=== PATIENT | female | born 1925 | race Caucasian/White ===

== ENCOUNTER 2016-08-12 09:34 | Emergency (ER) | payer MEDICARE, OTHER ==
[2016-08-12 11:15] VITALS: BP 166/86
[2016-08-12] MEDS ORDERED: Albuterol/Ipratropium NEB.SOL* Albuterol 2.5 MG/Ipratropium 0.5 MG 3 ML INH ONE (11:28)
[2016-08-12] MEDS ORDERED: Acetaminophen TAB* 325 MG PO ONE (11:30)
--- NOTE | 2016-08-12 11:53 | RAD ---
HISTORY: Shortness of breath, fever COMPARISONS: April 25, 2013 VIEWS: 2: Frontal and lateral views of the chest. FINDINGS: CARDIOMEDIASTINAL SILHOUETTE: The cardiomediastinal silhouette is normal. WHITNEY: There is stable right hilar calcified lymph node PLEURA: The costophrenic angles are sharp. No pleural abnormalities are noted. LUNG PARENCHYMA: The lungs are clear. ABDOMEN: The upper abdomen is clear. There is no subphrenic gas. BONES AND SOFT TISSUES: No bone or soft tissue abnormalities are noted. OTHER: None. IMPRESSION: NO ACTIVE CARDIOPULMONARY DISEASE.
--- NOTE | 2016-08-12 12:25 | UC ---
Respiratory Complaint HPI - HPI Summary HPI Summary: cough and chest feels tight - History of Current Complaint Chief Complaint: UC Stated Complaint: CONGESTION Time Seen by Provider: 08/12/16 11:02 Hx Obtained From: Patient ?: No Onset/Duration: Sudden Onset Timing: Constant Severity Initially: Mild Severity Currently: Mild Character: Cough: Nonproductive Aggravating Factors: Deep Breaths Alleviating Factors: Nothing Associated Signs And Symptoms: Positive: Wheezing, URI - Allergies/Home Medications Allergies/Adverse Reactions: Allergies Allergy/AdvReac Type Severity Reaction Status Date / Time Phosphate AdvReac 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 Home Medications: Home Medications Pseudoephedrine-Guaifenesin [Mucinex D 60-600 mg] 1 tab PO BID PRN 08/12/16 [ History Confirmed 08/12/16] PMH/Surg Hx/FS Hx/Imm Hx Previously Healthy: No Endocrine History Of: Denies: Diabetes Cardiovascular History Of: Reports: Hypertension Denies: Pacemaker/ICD Respiratory History Of: Reports: Asthma GI/ History Of: Reports: Renal Disease - 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 LEFT ANKLE FX WITH METAL SCREW PLACEMENT - 1999. T&A. CATARACT REPAIR WITH LENSE REPLACEMENT - Family History Known Family History: Positive: Unknown Family History: no reported cardiovascular issues in family lineage - Social History Occupation: Retired Lives: With Family Alcohol Use: Daily Alcohol Amount: 1 glass wine/day Substance Use Type: None Smoking Status (MU): Never Smoked Tobacco Have You Smoked in the Last Year: No - Immunization History Most Recent Influenza Vaccination: fall 2015 Most Recent Tetanus Shot: UNSURE Most Recent Pneumonia Vaccination: 2017 Review of Systems Constitutional: Negative Skin: Negative Eyes: Negative ENT: Negative Respiratory: Cough - congested Cardiovascular: Negative Gastrointestinal: Negative Genitourinary: Negative Motor: Negative Neurovascular: Negative Musculoskeletal: Negative Neurological: Negative Psychological: Negative All Other Systems Reviewed And Are Negative: Yes Physical Exam Triage Information Reviewed: Yes Appearance: Well-Appearing, No Pain Distress, Well-Nourished Vital Signs: Initial Vital Signs Temp 100.5 F 08/12/16 10:37 Pulse 100 08/12/16 10:37 Resp 16 08/12/16 10:37 BP 158/72 08/12/16 10:37 Pulse Ox 96 08/12/16 10:37 Vital Signs Reviewed: Yes Eye Exam: Normal Eyes: Positive: Conjunctiva Clear ENT Exam: Normal ENT: Positive: Normal ENT inspection, Hearing grossly normal, Pharynx normal, TMs normal. Negative: Nasal congestion, Nasal drainage, Tonsillar swelling, Tonsillar exudate, Trismus, Muffled/hoarse voice Dental Exam: Normal Neck exam: Normal Neck: Positive: Supple, Nontender, No Lymphadenopathy Respiratory Exam: Normal Respiratory: Positive: Chest non-tender, No respiratory distress, No accessory muscle use, Wheezing Cardiovascular Exam: Normal Cardiovascular: Positive: No Murmur, Pulses Normal, Brisk Capillary Refill, Tachycardia Abdominal Exam: Normal Abdomen Description: Positive: Nontender, No Organomegaly, Soft Bowel Sounds: Positive: Present Musculoskeletal Exam: Normal Musculoskeletal: Positive: Strength Intact, ROM Intact, No Edema Neurological Exam: Normal Neurological: Positive: Alert, Muscle Tone Normal Psychological Exam: Normal Psychological: Positive: Normal Response To Family, Age Appropriate Behavior Skin Exam: Normal UC Diagnostic Evaluation - Laboratory O2 Sat by Pulse Oximetry: 97 Diagnostic Studies Comment: CXR---acute changes - Radiology Xray Interpretation: No Acute Changes Radiology Interpretation Completed By: Radiologist - EKG Cardiac Rate: NL Cardiac Rhythm: Sinus: Normal Ectopy: None ST Segment: Normal Re-Evaluation - Re-Evaluation First Eval Change: Improved - sat 96% ra After lasha, feels much better , coughed large amount of sputum, lungs CTA Respiratory Course/Dx - Course Course Of Treatment: Albuterol neb, zithmax, increase fluids, follow with Dr. Salas in 2-3 days - Differential Dx/Diagnosis Differential Diagnosis/HQI/PQRI: Asthma, Bronchitis, Exacerbation Of COPD, Laryngitis, Lower Resp Infection Provider Diagnoses: Acute on Chronic exacerbation of asthma Discharge - Discharge Plan Condition: Stable Disposition: HOME Prescriptions: Albuterol 2.5MG/3ML (0.083%)* [Ventolin 2.5 MG/3 ML NEB.EDMOND*] 2.5 mg INH Q6H PRN #1 box PRN Reason: cough/chest congestion Azithromycin TAB* [Zithromax TAB (Z-SOURAV) 250 mg #6 tabs] 2 tab PO .TODAY, THEN 1 DAILY #1 sourav Patient Education Materials: Acute Bronchitis (ED), How to Use a Nebulizer (ED) , Bronchospasm (ED) Referrals: Kj Salas MD [Primary Care Provider] - 3 Days
== END 2016-08-12 12:45 | disposition home or self-care (01) ==
LOC: UCEAST 09:34
DX: J45.901 Unspecified asthma with (acute) exacerbation (principal)
CPT/HCPCS: 71020; 87502; 93005; 99213; A9270-GY; G0463